=== PATIENT | male | born 1965 | race Caucasian/White ===

== ENCOUNTER 2017-02-04 20:01 | Emergency (ER) | payer OTHER ==
[~2017-02-04] VITALS: Ht 180.3 cm; Wt 77.0 kg
[2017-02-04 20:09] VITALS: Ht 180.3 cm; Wt 77.0 kg
[2017-02-04] MEDS ORDERED: FAMOTIDINE 20 MG TAB PO STA (20:14)
[2017-02-04] MEDS ORDERED: ONDANSETRON 4 MG INJ IV STA (20:14)
[2017-02-04] MEDS ORDERED: LIDOCAINE/MYLANTA 40 ML BTL PO STA (20:14)
[2017-02-04] MEDS ORDERED: BELLADONNA/PHENOBARBITAL TAB PO STA (20:14)
[2017-02-04] MEDS ORDERED: MULTIVITAMINS 10 ML, THIAMINE 100 MG, FOLIC ACID 1 MG, MAGNESIUM SULFATE 2 GM in SOD CH... IV ONE (20:30)
[2017-02-04] MEDS ORDERED: SOD CHLORIDE 0.9% 1,000 ML IV ONE (20:30)
[2017-02-04 21:04] LABS: ADD SCAN DIFF NO
--- NOTE | 2017-02-04 21:04 | ERD ---
ER Documentation Chief Complaint Date/Time DATE: 02/04/17 TIME: 21:01 Chief Complaint sudden onset CP/pressure while smoking/drinking, nonradiating ROS All systems reviewed and are negative except as per history of present illness. Medications Home Meds No Active Prescriptions or Reported Meds Allergies Allergies: Coded Allergies: No Known Drug Allergies (Verified Allergy, Unknown, 02/04/17) PMhx/Soc Alcohol abuse, gastritis, GERD History of Surgery: No Anesthesia Reaction: No Hx Neurological Disorder: Yes (migraines) Hx Respiratory Disorders: No Hx Cardiac Disorders: No Hx Psychiatric Problems: No Hx Miscellaneous Medical Probl: Yes (HLD) Hx Alcohol Use: Yes Hx Substance Use: No Hx Tobacco Use: Yes Smoking Status: Current every day smoker FmHx Family History: No diabetes Physical Exam Vitals Vital Signs Date Time Temp Pulse Resp B/P Pulse Ox O2 Delivery O2 Flow Rate FiO2 02/04/17 20:09 99.2 107 20 112/79 97 Physical Exam GENERAL: Well-developed, well-nourished, dehydrated, appears intoxicated, alcohol on breath HEENT: Dry mucous membranes, pink conjunctiva, no cervical spine tenderness or step-off deformities, no goiter, no jaundice or icterus, extraocular movements intact without pain. No submandibular induration, and no pharyngeal erythema NEURO: Alert and oriented 3, cranial nerves II through XII intact bilaterally, pupils equal round reactive to light, no focal deficits or facial asymmetry, sensation intact distally Strength 5/5 in upper and lower extremities bilaterally CARDIAC: Regular rate and rhythm, no murmurs rubs or gallops LUNGS: Clear bilaterally no wheezing crackles or stridor ABDOMEN: Soft nontender, no guarding, no rigidity, no rebound, no psoas sign no obturator sign. Normoactive bowel sounds SKIN: Warm and dry to touch, no abrasions, contusions, or hematomas, no lacerations, no ecchymosis, no target lesions, and without ulcers EXTREMITIES: No clubbing cyanosis or edema, calves are bilaterally symmetrical, no Homans sign, no popliteal cord sign. Distal pulses equal and bilateral PSYCH: Normal affect without agitation or irritability Results 24 hrs Current Medications Medications (Trade) Dose Ordered Sig/Jovani Route PRN Reason Start Time Stop Time Status Last Admin Dose Admin Multivitamins 10 ml/Thiamine HCl 100 mg/Folic Acid 1 mg/Magnesium Sulfate 2 gm/ Sodium Chloride 1,015.2 ml @ 500 mls/ hr Q2H2M ONCE IV 02/04/17 20:30 02/04/17 22:31 Sodium Chloride (NS) 1,000 ml @ 1,000 mls/hr Q1H ONCE IV 02/04/17 20:30 02/04/17 21:29 02/04/17 20:37 Ondansetron HCl (Zofran Inj) 4 mg ONCE STAT IV 02/04/17 20:14 02/04/17 20:17 DC 02/04/17 20:50 Famotidine (Pepcid) 40 mg ONCE STAT PO 02/04/17 20:14 02/04/17 20:17 DC 02/04/17 20:50 Miscellaneous Medication (Gi Cocktail (2)) 40 ml ONCE STAT PO 02/04/17 20:14 02/04/17 20:17 DC 02/04/17 20:50 Belladonna/ Phenobarbital () 2 tab ONCE STAT PO 02/04/17 20:14 02/04/17 20:17 DC 02/04/17 20:50 Procedures/MDM IV line was established patient was placed on monitor technician rhythm strip revealed a sinus rhythm at about 80 bpm with upright P and T waves. Patient was afebrile. EKG performed, read by me: 87 bpm, normal sinus rhythm, normal axis, no acute ST segment changes, narrow QRS complex, with good R-wave progression in precordial leads. Departure Diagnosis: Primary Impression: Chest pain Chest pain type: unspecified Qualified Code: R07.9 - Chest pain, unspecified type Additional Impressions: Alcohol abuse Dehydration Gastritis Gastritis type: alcoholic Chronicity: acute Gastritis bleeding: without bleeding Qualified Code: K29.20 - Acute alcoholic gastritis without hemorrhage Condition: Good JUSTIN LOMBARDO MD Feb 04, 2017 21:04
[2017-02-04 21:10] LABS: BASOPHIL # 0.1 10^3/ul (0.0-0.1); BASOPHILS % 1.8 % (0.0-2.0); EOSINOPHILS # 0.3 10^3/ul (0.0-0.5); EOSINOPHILS % 7.3 % (0.0-7.0); HEMATOCRIT 40.1 % (42.0-52.0); HEMOGLOBIN 13.6 g/dl (14.0-18.0); LYMPHOCYTES # 1.2 10^3/ul (0.8-2.9); LYMPHOCYTES % 30.6 % (15.0-51.0); MEAN CORPUSCULAR HEMOGLOBIN 31.5 pg (29.0-33.0); MEAN CORPUSCULAR HGB CONC 33.9 g/dl (32.0-37.0); MEAN CORPUSCULAR VOLUME 92.8 fl (82.0-101.0); MEAN PLATELET VOLUME 9.5 fl (7.4-10.4); MONOCYTE # 0.5 10^3/ul (0.3-0.9); MONOCYTES % 13.6 % (0.0-11.0); NEUTROPHIL # 1.8 10^3/ul (1.6-7.5); NEUTROPHILS % 46.4 % (39.0-77.0); PLATELET COUNT 290 10^3/UL (140-415); RED BLOOD COUNT 4.32 10^6/ul (4.70-6.10); WHITE BLOOD COUNT 3.8 10^3/ul (4.8-10.8)
[2017-02-04] MEDS ORDERED: ONDA4TAB8 PO (21:31)
[2017-02-04] MEDS ORDERED: MAG355OR14 PO (21:31)
[2017-02-04] MEDS ORDERED: FAMO40TA52 PO (21:31)
[2017-02-04] MEDS ORDERED: NAPR-260 PO (21:31)
[2017-02-04 21:40] LABS: ALANINE AMINOTRANSFERASE 31 IU/L (13-69); ALBUMIN 4.6 g/dl (3.3-4.9); ALBUMIN/GLOBULIN RATIO 1.76; ALKALINE PHOSPHATASE 51 IU/L (42-121); ANION GAP 17 (8-16); ASPARTATE AMINO TRANSFERASE 37 IU/L (15-46); BLOOD UREA NITROGEN 9 mg/dl (7-20); CALCIUM 9.9 mg/dl (8.4-10.2); CARBON DIOXIDE 21 mmol/L (21-31); CHLORIDE 116 mmol/L (97-110); CREATININE 0.98 mg/dl (0.61-1.24); GLUCOSE 96 mg/dl (70-220); POTASSIUM 3.8 mmol/L (3.5-5.1); SODIUM 150 mmol/L (135-144); TOTAL PROTEIN 7.2 g/dl (6.1-8.1)
--- NOTE | 2017-02-04 21:53 | RADRPT ---
PROCEDURE: Portable chest x-ray. CLINICAL INDICATION: Abdominal pain. TECHNIQUE: Portable AP view of the chest. COMPARISON: None. FINDINGS: No pulmonary edema or conolidation is identified. The cardiac silhouette is magnified. The right co stophrenic angle is incompletely imaged. No pleural effusion is seen. There is no pneumothorax. T here is no pneumoperitoneum. IMPRESSION: 1. No evidence of acute cardiopulmonary disease. 2. No pneumoperitoneum. RPTAT: HTAR .Darryl Guerrero MD, Date Time Electronically viewed and signed by .Darryl Guerrero MD, on 02/04/2017 21:53 .R/
[2017-02-04 21:56] LABS: TROPONIN-I < 0.012 ng/ml (0.00-0.12)
[2017-02-04] MEDS ORDERED: NICOTINE (21 MG/24 HR) PATCH TRANSDERM ONE (22:00)
[2017-02-04 23:30] VITALS: BP 115/86; PULSE 85; RESP 20
== END 2017-02-05 00:49 | disposition home or self-care (01) ==
LOC: E/R 20:01
DX: R07.9 Chest pain, unspecified (principal); F10.10 Alcohol abuse, uncomplicated; E86.0 Dehydration; K29.20 Alcoholic gastritis without bleeding; F17.210 Nicotine dependence, cigarettes, uncomplicated
CPT/HCPCS: 36415; 71010; 80053; 83690; 84484; 85025; 93005; 96374; J2405; J3411; J3475; J7030; Z7502; Z7610